=== PATIENT | male | born 1940 | race Caucasian/White ===

== ENCOUNTER 2022-05-10 21:31 | Emergency (ER) | payer MEDICARE, OTHER ==
[~2022-05-10] VITALS: Ht 165.1 cm; Wt 58.1 kg
--- NOTE | 2022-05-10 22:35 | NUR ---
Patient A/Ox3. NAD noted. Ambulatory with steady gait.
[2022-05-10] MEDS ORDERED: MORPHINE SULFATE 2 MG/1 ML DISP.SYRIN IM ONE (23:00)
[2022-05-10] MEDS ORDERED: ASPIRIN 81 MG TAB.CHEW PO ONE (23:00)
--- NOTE | 2022-05-10 23:00 | NUR ---
Dr. Coon at bedside. MSE in progress.
[2022-05-10] MEDS ORDERED: MORPHINE SULFATE 2 MG/1 ML DISP.SYRIN ONE (23:05)
[2022-05-10] MEDS ORDERED: ASPIRIN 81 MG TAB.CHEW ONE (23:05)
[2022-05-10] MEDS ORDERED: ESCI10TA PO (23:12)
[2022-05-10] MEDS ORDERED: GABA-532 PO (23:12)
[2022-05-10] MEDS ORDERED: LEVO75TA7 PO (23:12)
[2022-05-10] MEDS ORDERED: MONT10TA33 PO (23:12)
[2022-05-10] MEDS ORDERED: RIVA20TA PO (23:12)
[2022-05-10] MEDS ORDERED: ESZO3TAB27 PO (23:12)
[2022-05-10] MEDS ORDERED: CARV3.122 PO (23:12)
[2022-05-10 23:20] LABS: CARBON DIOXIDE 28 mmol/L (21-32); CHLORIDE 104 mmol/L (98-107); CREATININE 0.9 mg/dL (0.6-1.3); GLUCOSE 107 mg/dL (74-106); POTASSIUM 3.8 mmol/L (3.5-5.1); UREA NITROGEN, BLOOD 24 mg/dL (7-18)
[2022-05-10 23:33] LABS: ALANINE AMINOTRANSFERASE 18 U/L (16-63); ALKALINE PHOSPHATASE 48 U/L (50-136); ASPARTATE AMINOTRANSFERASE 12 U/L (15-37); BILIRUBIN,DIRECT < 0.1 mg/dL (0.0-0.2); BILIRUBIN,TOTAL 0.3 mg/dL (0.2-1.0); TOTAL PROTEIN, SERUM 6.7 g/dL (6.4-8.2)
[2022-05-10 23:36] LABS: HEMATOCRIT 33.2 % (36.7-47.1); MEAN CORPUSCULAR HEMOGLOBIN 33.7 uug (23.8-33.4); MEAN CORPUSCULAR VOLUME 99.5 fL (73.0-96.2); PLATELET COUNT (AUTO) 196 K/uL (152-348)
--- NOTE | 2022-05-11 00:41 | NUR ---
Called [facility] for panel call. Donna MELLO [employer].
[2022-05-11] MEDS ORDERED: ONDANSETRON 4 MG/2 ML VIAL IV PRN (01:00)
[2022-05-11] MEDS ORDERED: ALBUTEROL SULFATE 8 GM HFA.AER.AD IH PRN (01:00)
[2022-05-11] MEDS ORDERED: ACETAMINOPHEN 325 MG TABLET PO PRN (01:00)
--- NOTE | 2022-05-11 01:08 | NUR ---
Patient does not wish to proceed with medical care recommended by Dr. Coon. Patient given information related to possible complications, up to and including , which could occur as a result of leaving the hospital at this time. Patient verbalizes understanding of risks involved due to leaving against medical advice. Patient has signed AMA form.
[2022-05-11 01:12] VITALS: BP 135/62
[2022-05-11] MEDS ORDERED: CARVEDILOL 3.125 MG TABLET PO SCH ×2 (09:00)
[2022-05-11] MEDS ORDERED: LEVOTHYROXINE SODIUM 75 MCG TABLET PO SCH (09:00)
[2022-05-11] MEDS ORDERED: ESCITALOPRAM OXALATE 10 MG TABLET PO SCH (09:00)
[2022-05-11] MEDS ORDERED: GABAPENTIN 100 MG CAPSULE PO SCH (09:00)
[2022-05-11] MEDS ORDERED: MONTELUKAST SODIUM 10 MG TABLET PO SCH (09:00)
[2022-05-11] MEDS ORDERED: FLUTICASONE/VILANTEROL 1 EACH BLST.W.DEV INH SCH (09:00)
[2022-05-11] MEDS ORDERED: Medication Not On Formulary EA (Eszopiclone (Lunesta) 3 MG) PO SCH (09:00)
== END 2022-05-11 01:08 | disposition left against medical advice (07) ==
LOC: ER 21:31
DX: R07.9 Chest pain, unspecified (principal); E07.9 Disorder of thyroid, unspecified; Z79.899 Other long term (current) drug therapy; D64.9 Anemia, unspecified; R00.1 Bradycardia, unspecified; I48.91 Unspecified atrial fibrillation; Z79.01 Long term (current) use of anticoagulants
CPT/HCPCS: 99285; 71045; 80076; 80048; 83880; 85025; 85379; 84484; 36415; 93005; 96372; J2270